=== PATIENT | female | born 1985 | race Caucasian/White ===

== ENCOUNTER 2016-07-22 10:00 | Inpatient (IN) | payer OTHER ==
--- NOTE | ~2016-07-22 | HP ---
Unit #: [id number] #: [id number] Patient: VALERIY BALBUENA [id number] [place] [address] [id number] MR#: [id number] NAME: VALERIY BALBUENA. ROOM: P185 Age: 31 Sex: F Admission Date: 07/22/2016 : 1985 Attending Physician: Ammon Durant M.D. Admitting Physician: Ammon Durant M.D. Primary Care Physician: Generic Doctor Not In System HISTORY AND PHYSICAL HISTORY OF PRESENT ILLNESS Valeriy is a 31 year old admitted to [facility] because of her drug use. She shoots heroin. PAST MEDICAL HISTORY 1. Long history of opioid abuse to include IV heroin. 2. Restless leg syndrome. PAST SURGICAL HISTORY Knee x2. ALLERGIES Sulfa. SOCIAL HISTORY Smokes 1 pack per day. Denies alcohol. Admits to a long history of opioid abuse to include IV heroin. FAMILY HISTORY Medically noncontributory. REVIEW OF SYSTEMS CONSTITUTIONAL: No fever or chills. HEENT: Denies any sore throat, ear pain or runny nose. CARDIOVASCULAR: Denies chest pain, irregular heart rhythm or palpitations. CHEST: Denies shortness of breath or cough. No hemoptysis. GASTROINTESTINAL: Denies nausea, vomiting, diarrhea or chronic constipation. ENDOCRINE: Denies history of increased thirst or urination. No recent significant weight loss or gain. GENITOURINARY: Denies dysuria, frequency, or hematuria. SKIN: Denies any rashes. HEMATOLOGIC: Denies history of increased bleeding or bruising. MUSCULOSKELETAL: Denies any hot, swollen joints. No generalized muscle pain. NEUROLOGIC: Denies problems with vision or speech. No frequent, severe headaches. No numbness, tingling or weakness in any extremities. Denies loss of bladder or bowel control. CURRENT MEDICATIONS Detox protocol. PHYSICAL EXAMINATION Unit #: [id number] #: [id number] Patient: VALERIY BALBUENA GENERAL: Alert, well-nourished, in no apparent distress. VITAL SIGNS: Blood pressure 122/76, heart rate 66, respirations 16, temperature 98.6. WEIGHT: 116. HEIGHT: 5 feet 8 inches. SKIN: Warm and dry without rash or lesion. HEENT: Normocephalic. TMs not viewed. Oral and nasal passages clear. Conjunctivae clear. PERRLA. EOMs intact. NECK: Supple without lymphadenopathy or thyromegaly. HEART: Regular rate and rhythm without murmur. LUNGS: Clear. ABDOMEN: Soft, nontender. : Not done. EXTREMITIES: No evidence of cyanosis, clubbing or edema. Moves all without focal deficit. NEUROLOGICAL: Grossly within normal limits. Cranial Nerves: II: Visual jefferson are intact. III, IV AND : Extraocular movements are intact. Pupils are equal, round and reactive to light. V: Facial sensation is grossly normal. VII: Facial movements and expression are normal. VIII: Auditory acuity grossly intact. IX, X: Uvula is midline. Phonation is normal. XI: Patient shrugs shoulders and turns head normally. XII: Tongue protrudes in the midline. Sensory and Motor Function: Sensory and motor sensation is grossly normal. Motor: moves all extremities well. Coordination: Gait is normal. Deep Tendon Reflexes: Intact. IMPRESSION Psychiatric admission. RECOMMENDATIONS PSYCHIATRIC: Per psychiatrist. MEDICAL: See no contraindication to participate in facility's activities. MEDICAL PROGNOSIS Good. MEDICAL CONDITION Stable. Dictated by... Maria Esther Dan PNedANed-Jenifer. for Lisa Mayer/gregorio TD: 07/22/2016 21:37 JOB #: [id number] Unit #: [id number] #: [id number] Patient: VALERIY BALBUENA HISTORY AND PHYSICAL Page 1 of 1 X Maria Esther Dan HISTORY AND PHYSICAL
--- NOTE | ~2016-07-22 | PA ---
Unit #: [id number] #: [id number] Patient: VALERIY BALBUENA [id number] [place] [address] [id number] MR#: [id number] NAME: VALERIY BALBUENA. ROOM: P185 Age: 31 Sex: F Admission Date: 07/22/2016 : 1985 Date of Assessment: 07/23/2016 Attending Physician: Ammon Durant M.D. Admitting Physician: Ammon Durant M.D. Primary Care Physician: Generic Doctor Not In System PSYCHIATRIC ASSESSMENT LOCATION [facility], room #185, bed #1. DATE OF SERVICE 07/23/2016. INFORMANTS The patient and chart both seem reliable. CHIEF COMPLAINT "I messed up and started using heroin again." HISTORY OF PRESENT ILLNESS This is a 31-year-old white female who has been sober from heroin for over 4 months and relapsed about 2 plus months ago on IV heroin between a 0.5 g to 1 g of IV heroin a day of regular . The patient reports feeling that she let herself down. She did not continue her outpatient care when she moved here over a year and a half ago and that is what led to her relapse. She denied any SI or HI, but did report issues of restless legs overnight with twitches, aches, and pains, headaches, diaphoresis, tremors in her hands, or sleep disturbance as well as anxiety. The patient denied any SI or HI. She says she is feeling somewhat better this morning compared to overnight, but still noticing poor energy, impaired appetite, headaches, and decreased responsiveness in terms of focus. No other drugs of abuse. The patient lives with a partner who has 2 children at this moment, currently in transition to a new job. No current outpatient providing care locally. PAST PSYCHIATRIC HISTORY No history of overt treatment in terms of a mental health standpoint. There are no outpatient providers. No history of SI, HI, or psychosis. FAMILY HISTORY Significant for anxiety in her father beyond that noncontributory. SOCIAL HISTORY The patient is technically , but does have a significant other now and she has 2 children, they are staying with them currently. Employment issues in transition. MEDICAL HISTORY Noncontributory. Unit #: [id number] #: [id number] Patient: VALERIY BALBUENA MEDICATION HISTORY None. ALLERGIES Include sulfa drugs. SUBSTANCE ABUSE HISTORY As noted above. Previous history, CD treatment outside of the state, nothing locally. No current outpatient care and placed in terms of AA or therapy. No history of complications in terms of seizures or other significant withdrawal issues. MENTAL STATUS EXAMINATION General appearance; this is a limitedly groomed white female, appears somewhat older than stated age, fairly cooperative and responsive with interview process with good eye contact, minor tremors noted in her hands. Speech was clear and coherent with normal prosody. Mood was anxious with constricted affect. Thought process and content were grossly organized and linear. No overt evidence of psychosis. No SI. No HI reported or elicited. The patient is oriented. The patient's memory was grossly intact. Associations are normal. Cognitive function was at baseline. Insight and judgment are limited regarding her substance abuse. ASSETS AND LIABILITIES Assets; include support through significant other, history of treatment, and protracted periods of sobriety. Liabilities; include failure of outpatient management and transition of employment. ADMITTING DIAGNOSES AXIS I: Opioid dependency with withdrawal. AXIS II: AXIS III: AXIS IV: AXIS V: PSYCHIATRIC PLAN Continue the patient's admission for safety and stabilization for ongoing issues with detox symptoms as noted above in a safe controlled manner with proper detox protocols in place at this point. The patient also given trazodone 100 mg at bedtime to help with sleep. The patient will be encouraged to attend group activities and interact in the milieu as per milieu regulations. Treatment goals will be resolution of symptoms in a safe controlled environment with discharge planning most likely requiring community resources. The patient already expressing interest in Vivitrol. ESTIMATED LENGTH OF STAY Approximately 4 days. Dictated by... Ammon Durant M.D. SERGIO/arely TD: 07/23/2016 23:51 JOB #: [id number] Unit #: [id number] #: [id number] Patient: VALERIY BALBUENA PSYCHIATRIC ASSESSMENT Page 1 of 1 X Ammon Durant MD X PSYCHIATRIC ASSESSMENT
--- NOTE | ~2016-07-22 | DS ---
Unit #: [id number] #: [id number] Patient: VALERIY BALBUENA [id number] [place] [address] [id number] MR#: [id number] NAME: VALERIY BALBUENA. ROOM: P185 Age: 31 Sex: F Admission Date: 07/22/2016 : 1985 Discharge Date: 07/24/2016 Attending Physician: Ammon Durant M.D. Primary Care Physician: Generic Doctor Not In System DISCHARGE SUMMARY REASON FOR ADMISSION Opioid dependency and withdrawal. DIAGNOSTIC STUDIES PERTINENT LABORATORY DATA: The patient had a routine blood work that included a CMP that was within normal parameters except a calcium slightly high at 2.6, beta HCG that was negative, urinalysis that was within acceptable parameters. RPR was nonreactive. No other labs ordered at this time. HOSPITAL COURSE The patient was admitted for safety and stabilization because of issues of chronic IV heroin dependency. The patient had been using half a gram or more a day for the last 2+ months with longstanding history of intermittent use before that. The patient had initially been reporting symptoms of aches, pains, minor tremor, diaphoresis, sleep disturbance, anxiety, headache, etc. The patient was placed on appropriate detox protocols and showed rapid improvement in her overall symptoms. At the time of discharge, the patient was denying any acute issues. She was denying any issues with mood problems. No SI, no HI. The patient does admit to having a history of anxiety. She is eager to start some outpatient programming for that after discharge. Overall, the patient was compliant with care and direction from staff. No behavioral issues. The patient was initially given trazodone to help with sleep, but apparently she did not respond appropriately, so she was switched over the Seroquel the night before discharge and seemed to have a good night sleep with that. Overall though it was felt the patient had reached maximum benefit on day of discharge and was discharged with outpatient recommendation and community resources as per her request. DISCHARGE DIAGNOSIS Opioid dependency with withdrawal. DISCHARGE INSTRUCTIONS Followup (1) __ community psychiatry resources in the patient's home area. DISCHARGE MEDICATIONS None. CONDITION AT DISCHARGE Improving. PROGNOSIS Moderate, somewhat guarded due to the patient's history of repetitive Unit #: [id number] #: [id number] Patient: VALERIY BALBUENA relapse. DISCHARGE DIET Regular. DISCHARGE ACTIVITY As tolerated with sobriety, and compliance encouraged. Dictated by... Lisa Edouard/ruth TD: 07/24/2016 12:42 JOB #: [id number] DISCHARGE SUMMARY Page 1 of 1 X Ammon Durant MD X DISCHARGE SUMMARY
--- NOTE | ~2016-07-22 | A ---
[facility] Nutrition Therapy DATE: 07/23/16 Patient: VALERIY BALBUENA Physician: [facility] Address: [address] [place] [address] Room/Bed: [address], Zip: [place] [address] Admit Date: 07/22/16 Date of : [birth year] Height: 5 8 Weight: [phone] NUTRITIONAL ASSESSMENT: REASON: Low BMI Admitting Dx: 31 y/o female admitted for IV heroin detox PMH: Long history of opioid abuse to include IV heroin, RLS, 1 ppd smoker Anthropometrics: Ht: 68", Wt: 116 lbs, BMI: 17 (underweight) Labs: None available Meds: MVI, Thiamine, Folic acid, Zofran/Phenergan, Loperamide, Mag-Al, Milk of Mg, psych meds noted Assessment: Chart reviewed, events noted. See reason for assessment, admitting dx and PMH as stated above. Patient undergoing IV heroin detox, she was clean for 4 years and relapsed 2 months ago. Says her committed suicide in 2009, now lives with her boyfriend and 2 children. Stable finances and support from parents, has bachelors degree in [employer] and is about to start working at [employer]. She is clinically underweight, no past weights available. Scored 0 points on the malnutrition risk screen however she reports a 10 lb loss in "weeks" and fair appetite during the needs assessment. She is tolerating a regular diet with no caffeine, suspect PO intake will improve with treatment. See RD recs below. Dx: Underweight r/t IV drug abuse AEB BMI 17. Intervention: See recs below Monitoring, Evaluation and Goals: 1. PO intake > 50% of meals. 2. Gradual weight gain towards a healthy BMI range. Monitor: Per MD consult Recommendations: 1. Continue regular diet, no caffeine per MD. Encourage oral intake. If large portion entree is desired please add to diet order and RD will approve for lunch and dinner. 2. If PO intake is < 50% of meals please order Ensure Plus BID (available in chocolate or vanilla, requires MD order) to promote weight gain. Encourage fluids. [facility] Nutrition Therapy DATE: 07/23/16 Patient: VALERIY BALBUENA Physician: [facility] Address: [address] [place] [address] Room/Bed: [address], Zip: [place] [address] Admit Date: 07/22/16 Date of : [birth year] Height: 5 8 Weight: [phone] 3. Please weigh q 3 days for monitoring purposes, as the patient is underweight. 4. Continue daily vitamins. 5. Please consult dietitian or call [phone] with any further nutritional needs. Mild nutrition risk Respectfully, Sima Murphy RD, LD [facility] cc: client file
[2016-07-23 12:31] LABS: BASOPHIL% 0.3 % (0-2.5); EOSINOPHIL# 0.1 X10e3 (0-0.7); EOSINOPHIL% 0.8 % (0.0-7.0); HEMATOCRIT 40.7 % (35.0-45.0); HEMOGLOBIN 13.2 gm/dL (12.0-16.0); LYMPHOCYTE# 1.1 X10e3 (1.0-3.5); MEAN CELL VOLUME 86.4 FL (83-96); MEAN CORPUSCULAR HEMOGLOBIN 28.1 PG (28-34); MEAN CORPUSCULAR HGB CONC 32.5 g/dL (30-36); MEAN PLATELET VOLUME 7.8 FL (6.5-11.5); MONOCYTE# 0.7 X10e3 (0-1.0); MONOCYTE% 7.5 % (3.0-12.0); NEUTROPHIL# 7.8 X10e3 (1.5-7.1); NEUTROPHIL% 80.4 % (40-75); PLATELET COUNT 273 X10e3 (140-420); RED BLOOD COUNT 4.71 X10e (3.90-5.30); WHITE BLOOD COUNT 9.7 X10e3 (4.0-10.5)
[2016-07-23 12:46] LABS: DIFF IND NO
[2016-07-23 12:51] LABS: ALBUMIN SERUM 4.2 g/dL (3.5-5.0); BILIRUBIN,TOTAL 0.6 mg/dL (0.2-2.0); BUN/CREATININE RATIO 13.63; CALCIUM SERUM 10.6 mg/dL (8.4-10.2); CREATININE SERUM 1.1 mg/dL (0.6-1.4); GLOM FILT RATE Estimated 67.3 mL/min (>60); POTASSIUM 4.4 mmol/L (3.5-5.1); PROTEIN TOTAL SERUM 7.2 g/dL (6.0-8.3)
== END 2016-07-24 11:40 | disposition home or self-care (01) | DRG 897 ==
LOC: P1E 13:08
PROVIDERS: Psychiatry & Neurology Psychiatry
DX: F11.23 Opioid dependence with withdrawal (principal); F17.210 Nicotine dependence, cigarettes, uncomplicated; G25.81 Restless legs syndrome; Z88.2 Allergy status to sulfonamides
CPT/HCPCS: 80053; 84703; 85025; 86592